=== PATIENT | female | born 1985 | race Caucasian/White ===

== ENCOUNTER → 2019-06-05 09:32 | Outpatient (CLI) | payer OTHER, SELFPAY ==
[2019-06-05 10:36] LABS: Add Manual Diff / Slide Review NO; Basophils Absolute Auto 0 /uL (0-100); Basophils Percent Auto 0.3 % (0-2); Eosinophils Absolute Auto 400 /uL (0-450); Eosinophils Percent Auto 3.7 % (2-4); Hematocrit 38.9 % (36-46); Hemoglobin 13.3 g/dL (12.0-16.0); Lymphocytes Absolute Auto 2400 /uL (1100-4500); Lymphocytes Percent Auto 23.7 % (25-40); Mean Corpuscular HGB Conc 34.4 % (30-36); Mean Corpuscular Hemoglobin 29.7 PG (26-34); Mean Corpuscular Volume 86.3 fL (80-100); Monocytes Absolute Auto 800 /uL (0-900); Monocytes Percent Auto 7.6 % (3-14); Neutrophils Absolute Auto 6700 /uL (1500-7000); Neutrophils Percent Auto 64.7 % (50-75); Platelet Count 329 X10^3/uL (150-400); Red Cell Distribution Width 12.9 % (11.6-14.8); White Blood Cell Count 10.3 X10^3/uL (4.5-11.0)
[2019-06-05 10:49] LABS: Appearance Urine UA CLEAR; Bilirubin Urine UA NEGATIVE (NEGATIVE); Color Urine UA YELLOW; Glucose Urine UA NEGATIVE (Negative); Ketones Urine UA NEGATIVE (NEGATIVE); Leukocyte Esterase Urine UA NEGATIVE (NEGATIVE); Nitrite Urine UA NEGATIVE (Negative); Occult Blood Urine UA TRACE-INTACT (Negative); Protein Urine UA NEGATIVE (Negative); Urobilinogen Urine UA 0.2 E.U./dL (0.2)
[2019-06-05 11:21] LABS: Hepatitis B Surface Antigen NEGATIVE s/c (NEGATIVE); Rubella Antibody IgG 52.6 IU/mL (>15)
[2019-06-05 11:35] LABS: HIV 1 & 2 Ab/Ag 4th Gen Combo NEGATIVE (NEGATIVE); Hep C Virus Ab w/Reflex Quant NEGATIVE s/c (NEGATIVE)
[2019-06-09 18:32] LABS: RPR Screen Nonreactive (Nonreactive)
== END ==
PROVIDERS: Visit Provider Specialist
DX: Z34.81 Encounter for supervision of other normal pregnancy, first trimester (principal); O09.291 Supervision of pregnancy with other poor reproductive or obstetric history, first trimester; Z86.32 Personal history of gestational diabetes
CPT/HCPCS: 36415; 80055; 81003; 83036; 86787; 86803; 86850; 86900; 86901; 87086; 87389

== ENCOUNTER → 2019-08-06 15:56 | Outpatient (CLI) | payer OTHER, SELFPAY ==
[2019-08-10 15:46] LABS: AFP, Serum 45.2 ng/mL; Brief History NTD NG; Calc Gestational Age 15.9; Cigarette Smoker N; Collection Date 121819; Donated Egg N; Donor Egg Age NOT GIVEN; Inhibin A, Dimeric 124 pg/mL; Maternal Weight 189 lbs; Number of Fetuses 1; Previous Pregnancy Down Syndro N; hCG, MoM 1.58; hCG, Serum 49.6 IU/mL
== END ==
PROVIDERS: PCP Physician Assistant; Visit Provider Specialist
DX: Z34.02 Encounter for supervision of normal first pregnancy, second trimester (principal); Z3A.15 15 weeks gestation of pregnancy
CPT/HCPCS: 36415; 82105; 82677; 84702; 86336

== ENCOUNTER → 2019-09-04 14:03 | Outpatient (CLI) | payer OTHER, SELFPAY ==
--- NOTE | 2019-09-04 14:04 | DI.US.S_ITS ---
PROCEDURE: US OB >= 14 WEEKS FETUS INDICATIONS: ANATOMY OUTSIDE/PRIOR DATING DATA: Last menstrual period (LMP): 04/10/19. LMP-based estimated date of delivery (EN): 01/15/20. First dating scan (date and location): 06/05/19. Estimated date of delivery (EN) from first dating scan: 01/20/20. TECHNIQUE: Real-time scanning was performed of the fetus, with image documentation and biometric measurements. COMPARISON: [facility], , OB <= 14 WEEKS FETUS, 06/05/2019, 8:51. FINDINGS: General: A single living intrauterine gestation is present. Presentation: Vertex. Placenta: Placental position is anterior, without previa. Amniotic fluid index: 21.7 cm, normal range is 5-24 cm. heart rate: 139 beats per minute. Maternal cervical canal: 3.7 cm long. Normal lower limit is 2.5 cm. biometrics: Biparietal diameter: 21 weeks 1 day Head circumference: 21 weeks Abdominal circumference: 21 weeks 4 days Femur length: 21 weeks 4 days Estimated gestational age from initial scan: 20 weeks 2 days Composite gestational age from present scan: 21 weeks 2 days Estimated weight and percentile: 433 g; 97th percentile Measurement variability for biometric dating: +/- 7 days from 14 weeks to 15 weeks 6 days gestation, +/- 10 days from 16 weeks to 21 weeks 6 days gestation, +/- 2 weeks from 22 weeks to 27 weeks 6 days gestation, +/- 3 weeks for 28 weeks gestation or later. weight reference: 4500 g or EFW >90/95% is considered macrosomia or large for gestational age. EFW <10% is small for gestational age. EFW 5% or less is considered intra-uterine growth restriction. Anatomic survey: Neuro: Ventricles are non-dilated at less than 10 mm. Cisterna magna is normal at 3-11 mm. Cerebellum is normal in size and morphology. Nuchal skin fold: Normal at less than 6 mm between 14-21 weeks gestational age. Face: Nose and lips, facial profile are normal. Spine: No evidence for spina bifida. Heart: 4-chambered heart is present, with normal ventricular outflow tracts. Diaphragm: Diaphragm is intact. Stomach: Left-sided stomach is present. Kidneys: No hydronephrosis. Normal is less than 5 mm in 2nd trimester, less than 7 mm in 3rd trimester. Cord: 3-vessel cord has orthotopic insertion. Bladder: Normal in size. Extremities: All 4 extremities identified. IMPRESSION: 1. Single living IUP redemonstrated and interval growth is greater than expected. Recommend clinical correlation and followup. 2. Normal anatomic survey. Dictated by: Jaron Nuñez [facility] Interpreted: Michelle Hussein MD on 09/04/2019 at 16:44 Approved by: Michelle Hussein MD, PhD on 09/04/2019 at 17:13
== END ==
PROVIDERS: Visit Provider Specialist
DX: Z34.82 Encounter for supervision of other normal pregnancy, second trimester (principal); Z3A.21 21 weeks gestation of pregnancy
CPT/HCPCS: 76811

== ENCOUNTER → 2019-10-13 15:21 | Outpatient (CLI) | payer OTHER, SELFPAY | PROVIDERS: Visit Provider Specialist | DX: Z34.90 Encounter for supervision of normal pregnancy, unspecified, unspecified trimester (principal); R30.0 Dysuria | CPT/HCPCS: 87077; 87086; 87186 ==

== ENCOUNTER → 2019-10-17 15:29 | Outpatient (CLI) | payer OTHER, SELFPAY ==
[2019-10-17 17:06] LABS: Hematocrit 33.7 % (36-46); Hemoglobin 11.7 g/dL (12.0-16.0)
[2019-10-17 18:01] LABS: GTT (PREG) 1 Hour PP 50gm Dose 153 mg/dL (76-139)
== END ==
PROVIDERS: Referring Provider Specialist; Visit Provider Specialist
DX: Z34.82 Encounter for supervision of other normal pregnancy, second trimester (principal); Z67.91 Unspecified blood type, Rh negative
CPT/HCPCS: 36415; 82950; 85014; 85018; 86850

== ENCOUNTER → 2019-10-24 09:25 | Outpatient (CLI) | payer OTHER, SELFPAY ==
[2019-10-24 11:44] LABS: Glucose Fasting Gestational 97 mg/dL (76-95)
[2019-10-24 12:04] LABS: Glucose 1 Hour Gest 222 mg/dL (76-180)
[2019-10-24 12:50] LABS: Glucose Tol Interp,Gestational INTERPRETATION
[2019-10-24 13:06] LABS: Glucose 2 Hour Gest 134 mg/dL (76-155)
[2019-10-24 13:46] LABS: Glucose 3 Hour Gest 104 mg/dL (76-140)
== END ==
PROVIDERS: Referring Provider Specialist; Visit Provider Specialist
DX: O99.810 Abnormal glucose complicating pregnancy (principal)
CPT/HCPCS: 36415; 82951; 82952

== ENCOUNTER → 2019-12-26 12:42 | Outpatient (CLI) | payer OTHER, SELFPAY ==
[2019-12-27 08:42] LABS: Strep Grp B PCR NEG for Grp B Strep
== END ==
PROVIDERS: Visit Provider Specialist
DX: Z34.83 Encounter for supervision of other normal pregnancy, third trimester (principal)
CPT/HCPCS: 87653

== ENCOUNTER 2019-12-26 12:55 | Outpatient (CLI) | payer OTHER, SELFPAY ==
--- NOTE | 2019-12-26 13:17 | P.TNLD_ITS ---
Visit Information Visit Information Date of evaluation: 12/26/19 Primary OB Provider: Pauline Stephens Reason for Evaluation: Yes non-stress test non-stress test reason: diabetes (Insulin dependent diabetes) [facility] Medical History (Updated 12/26/19 @ 13:18 by Pauline Stephens MD) Abnormal Pap smear of cervix (Acute ~2013) Acne (Inactive ~2003) Anxiety (Acute ~2005) Depression (Acute) Essential hypertension (Acute) GERD (gastroesophageal reflux disease) (Chronic ~2007) History of gestational diabetes (Acute) History of HPV infection (Acute ~2013) IBS (irritable bowel syndrome) (Acute ~2009) Joint pain (Chronic ~2005) Ovarian cyst (Chronic ~2017) Reflux involving intestinal tract (Acute) Surgical History (Updated 06/17/19 @ 15:02 by Joslyn Silver RN) H/O wisdom tooth extraction (Acute) Family History (Updated 07/01/19 @ 20:24 by Vania Cooper) Mother Diabetes mellitus Hypertension Depression Father Cancer Hypertension Brother Overdose Grandfather History of heart disease Grandmother No problems noted. Grandmother Cancer Social History marital status: unmarried,single Smoking Status: Never smoker Evaluation Evaluation Baseline heart rate: 140 Variability: Moderate (11-25) monitor accelerations: Present monitor decelerations: Absent Contraction Frequency (minutes): 0 Category of Tracing: I Diagnosis, Plan/Disposition Final Diagnosis (1) Gestational diabetes mellitus: Current Visit: No Status: Acute (2) 36 weeks gestation of : Current Visit: Yes Status: Acute (3) Essential hypertension: Current Visit: No Status: Acute Plan/Disposition Plan: Home weekly office visits and nonstress test OB Disposition: home
== END 2019-12-26 13:30 | disposition home or self-care (01) ==
LOC: LABOR 13:05 → OB 12-29 09:34
PROVIDERS: Referring Provider Specialist; Visit Provider Specialist
DX: O24.414 Gestational diabetes mellitus in pregnancy, insulin controlled (principal); I10 Essential (primary) hypertension; Z3A.36 36 weeks gestation of pregnancy; Z87.891 Personal history of nicotine dependence
CPT/HCPCS: 59025; 87653; G0378; G0379

== ENCOUNTER 2020-01-02 11:32 | Outpatient (CLI) | payer OTHER, SELFPAY ==
[2020-01-02 12:16] LABS: Add Manual Diff / Slide Review NO; Basophils Absolute Auto 0 /uL (0-100); Basophils Percent Auto 0.4 % (0-2); Eosinophils Absolute Auto 200 /uL (0-450); Eosinophils Percent Auto 1.8 % (2-4); Hemoglobin 11.3 g/dL (12.0-16.0); Lymphocytes Absolute Auto 1600 /uL (1100-4500); Lymphocytes Percent Auto 14.8 % (25-40); Mean Corpuscular HGB Conc 33.3 % (30-36); Mean Corpuscular Hemoglobin 28.1 PG (26-34); Mean Corpuscular Volume 84.3 fL (80-100); Monocytes Absolute Auto 600 /uL (0-900); Monocytes Percent Auto 5.7 % (3-14); Neutrophils Absolute Auto 8500 /uL (1500-7000); Neutrophils Percent Auto 77.3 % (50-75); Platelet Count 280 X10^3/uL (150-400); Red Blood Cell Count 4.03 X10^6/uL (4.0-5.2); Red Cell Distribution Width 14.4 % (11.6-14.8)
[2020-01-02 12:27] LABS: Alanine Aminotransferase 7 IU/L (<35); Albumin 3.8 g/dL (3.5-5.0); Albumin Globulin Ratio 1.1 (1.0-2.8); Alkaline Phosphatase 158 U/L (38-126); Aspartate Aminotransferase 20 IU/L (14-36); Bilirubin Total 0.3 mg/dL (0.2-1.3); Bilirubin Unconjugated 0.2 mg/dL (0.0-1.1); Blood Urea Nitrogen 13 mg/dL (7-17); Calcium 9.5 mg/dL (8.4-10.2); Carbon Dioxide 19 mmol/L (22-32); Chloride 106 mmol/L (98-107); Estimated Glomerular Filt Rate > 60.0 mL/min (>60); Globulin 3.6 g/dL (1.7-4.1); Glucose 125 mg/dL (70-100); HEMOLYSIS < 15 (0-50); Potassium 4.2 mmol/L (3.4-5.1); Sodium 135 mmol/L (137-145); Total Protein 7.4 g/dL (6.3-8.2); Uric Acid 6.2 mg/dL (2.5-6.2)
--- NOTE | 2020-01-02 12:44 | P.TNLD_ITS ---
Visit Information Visit Information Date of evaluation: 01/02/20 Primary OB Provider: Pauline Stephens Reason for Evaluation: Yes non-stress test non-stress test reason: diabetes (Insulin dependent) and hypertension/pre-eclampsia Vital Signs Vital Signs: Blood pressures ranged from 125/83, 133/98, 152/96 [facility] Medical History (Updated 01/02/20 @ 12:46 by Pauline Stephens MD) Abnormal Pap smear of cervix (Acute ~2013) Acne (Inactive ~2003) Anxiety (Acute ~2005) Depression (Acute) Essential hypertension (Acute) GERD (gastroesophageal reflux disease) (Chronic ~2007) History of gestational diabetes (Acute) History of HPV infection (Acute ~2013) IBS (irritable bowel syndrome) (Acute ~2009) Joint pain (Chronic ~2005) Ovarian cyst (Chronic ~2017) Reflux involving intestinal tract (Acute) Surgical History (Updated 06/17/19 @ 15:02 by Joslyn Silver RN) H/O wisdom tooth extraction (Acute) Family History (Updated 07/01/19 @ 20:24 by Vania Cooper) Mother Diabetes mellitus Hypertension Depression Father Cancer Hypertension Brother Overdose Grandfather History of heart disease Grandmother No problems noted. Grandmother Cancer Social History marital status: unmarried,single Smoking Status: Never smoker Objective Labs Result Diagrams: 01/02/20 12:03 01/02/20 12:03 Labs: Laboratory Results - last 24 hr 01/02/20 01/02/20 12:03 12:03 WBC 11.0 RBC 4.03 Hgb 11.3 L Hct 34.0 L MCV 84.3 MCH 28.1 MCHC 33.3 RDW 14.4 Plt Count 280 Neut % (Auto) 77.3 H Lymph % (Auto) 14.8 L [place] % (Auto) 5.7 Eos % (Auto) 1.8 L Baso % (Auto) 0.4 Neut # (Auto) 8500 H Lymph # (Auto) 1600 [place] # (Auto) 600 Eos # (Auto) 200 Baso # (Auto) 0 Sodium 135 L Potassium 4.2 Chloride 106 Carbon Dioxide 19 L BUN 13 Creatinine 0.65 Estimated GFR > 60.0 BUN/Creatinine Ratio 20.0 Glucose 125 H Uric Acid 6.2 Calcium 9.5 Total Bilirubin 0.3 Conjugated Bilirubin 0.0 Unconjugated Bilirubin 0.2 AST 20 ALT 7 Alkaline Phosphatase 158 H Total Protein 7.4 Albumin 3.8 Globulin 3.6 Albumin/Globulin Ratio 1.1 Evaluation Evaluation Baseline heart rate: 130 Variability: Moderate (11-25) monitor accelerations: Present monitor decelerations: Absent Category of Tracing: I Laboratory results: Laboratory Tests 01/02/20 01/02/20 12:03 12:03 WBC 11.0 RBC 4.03 Hgb 11.3 L Hct 34.0 L MCV 84.3 MCH 28.1 MCHC 33.3 RDW 14.4 Plt Count 280 Neut % (Auto) 77.3 H Lymph % (Auto) 14.8 L [place] % (Auto) 5.7 Eos % (Auto) 1.8 L Baso % (Auto) 0.4 Neut # (Auto) 8500 H Lymph # (Auto) 1600 [place] # (Auto) 600 Eos # (Auto) 200 Baso # (Auto) 0 Sodium 135 L Potassium 4.2 Chloride 106 Carbon Dioxide 19 L BUN 13 Creatinine 0.65 Estimated GFR > 60.0 BUN/Creatinine Ratio 20.0 Glucose 125 H Uric Acid 6.2 Calcium 9.5 Total Bilirubin 0.3 Conjugated Bilirubin 0.0 Unconjugated Bilirubin 0.2 AST 20 ALT 7 Alkaline Phosphatase 158 H Total Protein 7.4 Albumin 3.8 Globulin 3.6 Albumin/Globulin Ratio 1.1 Diagnosis, Plan/Disposition Final Diagnosis (1) Gestational diabetes mellitus: Current Visit: No Status: Acute (2) Essential hypertension: Current Visit: No Status: Acute (3) 37 weeks gestation of : Current Visit: Yes Status: Acute Plan/Disposition Plan: Patient with elevated blood pressures despite her labetalol. No symptoms of preeclampsia, urine dip was trace protein in the office, [facility] labs are normal. Patient is to increase her labetalol to 200 mg b.i.d.. Patient to have a follow-up NST with blood pressure check in 3 days. Precautions reviewed with the patient. Patient will continue her insulin and monitor her blood sugars. Patient is tentatively scheduled for induction on 01/14 OB Disposition: home
== END 2020-01-02 12:45 | disposition home or self-care (01) ==
LOC: LABOR 12:36 → OB 01-05 15:08
PROVIDERS: Referring Provider Specialist; Visit Provider Specialist
DX: O24.414 Gestational diabetes mellitus in pregnancy, insulin controlled (principal); O10.913 Unspecified pre-existing hypertension complicating pregnancy, third trimester; Z3A.37 37 weeks gestation of pregnancy
CPT/HCPCS: 36415; 59025; 80053; 80076; 84550; 85025; G0378; G0379

== ENCOUNTER 2020-01-05 12:03 | Outpatient (CLI) | payer OTHER, SELFPAY ==
--- NOTE | 2020-01-05 12:41 | PM.OBTRLD ---
Visit Information <Shy Chin MD - Last Filed: 01/05/20 13:48> Visit Information Date of evaluation: 01/05/20 Primary OB Provider: Pauline Stephens On-call OB Provider: Shy Chin Reason for Evaluation: Yes non-stress test Comments/Additional reasons for admission: Patient is a 34yo @37 weeks with hypertenstion and GDMA2 on insulin, presenting for scheduled NST. Vital Signs Vital Signs: 128/86, HR 96 PFSH <Shy Chin MD - Last Filed: 01/05/20 13:48> Medical History Abnormal Pap smear of cervix (Acute ~2013) Acne (Inactive ~2003) Anxiety (Acute ~2005) Depression (Acute) Essential hypertension (Acute) GERD (gastroesophageal reflux disease) (Chronic ~2007) History of gestational diabetes (Acute) History of HPV infection (Acute ~2013) IBS (irritable bowel syndrome) (Acute ~2009) Joint pain (Chronic ~2005) Ovarian cyst (Chronic ~2017) Reflux involving intestinal tract (Acute) Surgical History H/O wisdom tooth extraction (Acute) Family History Mother Diabetes mellitus Hypertension Depression Father Cancer Hypertension Brother Overdose Grandfather History of heart disease Grandmother No problems noted. Grandmother Cancer Social History marital status: unmarried,single Smoking Status: Never smoker Evaluation <Shy Chin MD - Last Filed: 01/05/20 13:48> Evaluation Baseline heart rate: 125 Variability: Moderate (11-25) monitor accelerations: Present monitor decelerations: Absent Category of Tracing: I Diagnosis, Plan/Disposition <Shy Chin MD - Last Filed: 01/05/20 13:48> Plan/Disposition Plan: Home with scheduled follow up. OB Disposition: home
== END 2020-01-05 12:51 | disposition home or self-care (01) ==
LOC: LABOR 12:27 → OB 15:10
PROVIDERS: Referring Provider Specialist; Visit Provider Specialist
DX: O24.414 Gestational diabetes mellitus in pregnancy, insulin controlled (principal); O13.3 Gestational [pregnancy-induced] hypertension without significant proteinuria, third trimester; Z3A.37 37 weeks gestation of pregnancy
CPT/HCPCS: 59025; G0378; G0379

== ENCOUNTER 2020-01-09 12:54 | Outpatient (CLI) | payer OTHER, SELFPAY ==
--- NOTE | 2020-01-09 13:23 | PM.OBTRLD ---
Visit Information Visit Information Date of evaluation: 01/09/20 Primary OB Provider: Pauline Stephens Reason for Evaluation: Yes non-stress test non-stress test reason: diabetes PFSH Social History marital status: unmarried,single Smoking Status: Never smoker Evaluation Evaluation Baseline heart rate: 140 Variability: Moderate (11-25) monitor accelerations: Present monitor decelerations: Absent Contraction Frequency (minutes): 0 Category of Tracing: I Diagnosis, Plan/Disposition Final Diagnosis (1) Gestational diabetes mellitus: Current Visit: No Status: Acute (2) 38 weeks gestation of : Current Visit: Yes Status: Acute (3) Essential hypertension: Current Visit: No Status: Acute Plan/Disposition Plan: Reactive nonstress test follow-up in 5 days OB Disposition: home
== END 2020-01-09 13:28 | disposition home or self-care (01) ==
LOC: LABOR 13:41 → OB 01-13 11:36
PROVIDERS: Referring Provider Specialist; Visit Provider Specialist
DX: O24.414 Gestational diabetes mellitus in pregnancy, insulin controlled (principal); I10 Essential (primary) hypertension; Z3A.38 38 weeks gestation of pregnancy
CPT/HCPCS: 59025; G0378; G0379

== ENCOUNTER 2020-01-10 23:11 | Inpatient (IN) | payer OTHER, SELFPAY ==
--- NOTE | 2020-01-11 03:02 | PM.OBHP.1 ---
OB HPI Date/Time Date of admission: 01/11/20 Date Patient Seen: 01/11/20 Time Patient Seen: 03:03 History of Present Condition Chief complaint: Evaluation of Labor : 2 Para: 1 Estimated Date of Delivery: 01/22/20 Estimated Gestational Age (weeks): 38 Narrative: Yamilet Menon is a 34 year old female admitted with spontaneous rupture of membranes not in active labor History of Present care: good care, initiated at week # (7), number of visits (13) and pounds weight gain (20) Dating criteria: based on 1st trimester US only Ultrasounds: normal mid trimester US Obstetrical complications: gestational diabetes (On insulin) and gestational hypertension (On labetalol) Medical complications: none Preadmission Labs Blood type: B (-) negative -: Antibody screen: negative, GBS status: negative, HBsAG: negative, HIV: negative and RPR/VDLR: negative -: Rubella: immune and Varicella: immune HCAB: negative Quad screen: Normal 1 hr GTT: 153 3 hr GTT: 1 hr (222), 2 hr (134) and 3 hr (104) Fasting blood glucose: 97 Evaluation Evaluation Baseline heart rate: 130 Variability: Moderate (11-25) monitor accelerations: Present monitor decelerations: Absent Contraction Frequency (minutes): 0 Category of Tracing: I Cervical dilation (cm): 1 Cervical effacement (%): 0 station: -3 PFSH Social History marital status: unmarried,single Smoking Status: Never smoker Meds Home Medications and Allergies Home Medications Medication Instructions Recorded Confirmed Type labetalol 100 mg tablet 100 mg PO BID #60 tab 06/05/19 01/09/20 Rx prenat.vits,vickie,fel-ospc-stfrv 1 tab PO DAILY 06/05/19 01/09/20 History ondansetron HCl 8 mg tablet 8 mg PO Q8H PRN #20 tab 07/23/19 01/09/20 Rx omeprazole 40 mg capsule,delayed 40 mg PO DAILY #30 cap 08/06/19 01/09/20 Rx release blood sugar diagnostic #400 each 10/24/19 01/09/20 Rx blood-glucose meter #1 each 10/24/19 01/09/20 Rx lancets 28 gauge #400 each 10/24/19 01/09/20 Rx insulin NPH isoph U-100 human 100 30 unit SUBCUT .COMPLEX #10 ml 12/19/19 01/09/20 Rx unit/mL subcutaneous suspension insulin regular human 100 unit/mL 10 unit SUBCUT .COMPLEX #10 ml 12/19/19 01/09/20 Rx injection solution insulin syringe-needle U-100 1 mL #100 each 12/19/19 01/09/20 Rx 29 gauge x 5/16 Allergies Allergy/AdvReac Type Severity Reaction Status Date / Time Sulfa (Sulfonamide Allergy Verified 11/14/19 11:09 Antibiotics) Tetracyclines Allergy Verified 11/14/19 11:09 Review of Systems Review of Systems Narrative: Patient complains of spontaneous rupture membranes 9:00 p.m. 01/10/2020 clear fluid. No headaches, scotomata. She is having heartburn. No contractions. ROS: Yes All systems reviewed with the patient and are negative except as otherwise documented Exam Vital Signs (past 8 hours): Blood pressure varies from 145/90 to 174/99, pulse 106, temperature 97.3? Narrative Exam Narrative: HEENT exam within limits. Lungs are clear to auscultation percussion. Heart is regular rate and S3-S4 or murmurs. Abdomen is soft, nontender. is vertex. Extremities without edema and nontender. Assessment and Plan Assessment and Plan Assessment and Plan narrative: 38 week gestation with premature rupture membranes. If patient does not go into active labor will begin Pitocin. Labetalol for hypertension and insulin for her gestational diabetes.
[2020-01-11] MEDS: CALCIUM CARBONATE 500 MG TAB 1000 MG PO ×2 (03:15→13:56)
[2020-01-11 05:07] LABS: Add Manual Diff / Slide Review NO; Basophils Absolute Auto 0 /uL (0-100); Basophils Percent Auto 0.3 % (0-2); Eosinophils Absolute Auto 200 /uL (0-450); Eosinophils Percent Auto 1.5 % (2-4); Hematocrit 33.6 % (36-46); Hemoglobin 11.4 g/dL (12.0-16.0); Lymphocytes Absolute Auto 2300 /uL (1100-4500); Lymphocytes Percent Auto 17.5 % (25-40); Mean Corpuscular Hemoglobin 28.2 PG (26-34); Monocytes Absolute Auto 900 /uL (0-900); Monocytes Percent Auto 7.2 % (3-14); Neutrophils Absolute Auto 9600 /uL (1500-7000); Neutrophils Percent Auto 73.5 % (50-75); Platelet Count 303 X10^3/uL (150-400); Red Blood Cell Count 4.05 X10^6/uL (4.0-5.2); Red Cell Distribution Width 14.2 % (11.6-14.8)
[2020-01-11 05:33] VITALS: BP 135/80
[2020-01-11 07:28] LABS: COVID19 -Nasal RAPID Negative (Negative)
[2020-01-11] MEDS: ACETAMINOPHEN 325 MG TABLET 650 MG PO ×2 (08:09→13:55)
[2020-01-11] MEDS: INSULIN NPH 100 UNIT/ML VIAL 30 UNIT SUBCUT (08:46)
[2020-01-11] MEDS: LACTATED RINGERS 1,000 ML 100 ML IV (09:07)
[2020-01-11] MEDS: OXYTOCIN PREMIX 30 UNIT/500 ML PLAST..BAG IV (09:08)
[2020-01-11 09:13] VITALS: BP 139/97; PULSE 100
[2020-01-11] MEDS: LABETALOL 100 MG TABLET PO (09:13)
[2020-01-11 10:28] VITALS: BP 161/91; PULSE 97
[2020-01-11] MEDS: LABETALOL 20 MG/4 ML SYRINGE IV (10:28)
[2020-01-11 13:32] VITALS: BP 103/49; PULSE 88
--- NOTE | 2020-01-11 17:55 | PM.OBPRVD ---
 Events: Gestational Diabetes (Insulin requiring), Induced HTN, Labor Augmentation (Pitocin) and Premature Rupture of Membrane Labor & Delivery Delivery date: 01/11/20 Delivery augmentation: pitocin Delivery monitor: external FHT and external uterine Route of delivery: L&D Laceration Description: None Estimated blood loss (mL): 50 Anesthesia type: Epidural Narrative: Patient arrived on Labor and delivery with spontaneous rupture membranes at 2100 on 01/11/2020. Patient did not start into active labor and so was started on Pitocin. She had NPH insulin. Her blood sugars were monitored every 2 hours. Patient had extremely labile blood pressures. She was treated with p.o. and IV labetalol. Patient received an epidural catheter for pain control. heart tones category 1 to category 2 throughout labor. She progressed rapidly to complete and pushing and had a spontaneous vaginal delivery. There was a tight nuchal cord. The viable female infant was placed on maternal abdomen. After the cord stopped pulsating the cord was clamped, cut, and cord bloods obtained. The placenta delivered spontaneously, intact, with 3 vessels. There were no cervical, vaginal, or perineal tears. Both infant mother doing well. [place] Baby 1: gender: Female Presentation: vertex position: Right Occiput Anterior Placenta delivery description: Spontaneous cord vessel description: Nuchal Cord score (1 min): 8 score (5 min): 9 Plan for aftercare: Routine care. Insulin no longer required. Monitor patient's blood pressures.
[2020-01-11] MEDS: LANOLIN OINT 7 GM 1 APPLIC TOP (21:22)
[2020-01-11] MEDS: FAMOTIDINE 20 MG TABLET 40 MG PO (21:25)
[2020-01-11] MEDS: NIFEdipine 30 MG TAB ER 60 MG PO (23:14)
[2020-01-12 05:23] LABS: Add Manual Diff / Slide Review NO; Basophils Absolute Auto 0 /uL (0-100); Basophils Percent Auto 0.3 % (0-2); Eosinophils Absolute Auto 200 /uL (0-450); Eosinophils Percent Auto 1.1 % (2-4); Hematocrit 32.1 % (36-46); Hemoglobin 11.1 g/dL (12.0-16.0); Lymphocytes Absolute Auto 2100 /uL (1100-4500); Mean Corpuscular HGB Conc 34.6 % (30-36); Mean Corpuscular Hemoglobin 28.5 PG (26-34); Mean Corpuscular Volume 82.4 fL (80-100); Monocytes Absolute Auto 1100 /uL (0-900); Monocytes Percent Auto 7.4 % (3-14); Neutrophils Absolute Auto 11700 /uL (1500-7000); Neutrophils Percent Auto 77.2 % (50-75); Platelet Count 279 X10^3/uL (150-400); Red Blood Cell Count 3.89 X10^6/uL (4.0-5.2); Red Cell Distribution Width 13.9 % (11.6-14.8); White Blood Cell Count 15.2 X10^3/uL (4.5-11.0)
[2020-01-12] MEDS: ACETAMINOPHEN 325 MG TABLET 650 MG PO (06:06)
[2020-01-12] MEDS: IBUPROFEN 600 MG TABLET PO (07:59)
--- NOTE | 2020-01-12 10:42 | PM.OBPN.1 ---
Subjective - OB Subjective Patient comments: no complaints, pain well controlled, tolerating diet and flatus present baby status: doing well [place] feeding status: breast and bottle feeding Narrative: This patient is a 34yo now P2 PPD#1 s/p , with a complicated by chronic hypertension and gestational diabetes. The patient reports feeling well this AM, with a mild headache but no visual changes, chest pain, SOB, RUQ pain, or any other complaints. The patient strongly desires discharge home, and we discussed monitoring of BPs until late afternoon with discharge if they remain well controlled on 60mg XL nifedipine qHS. Date Patient Seen: 01/12/20 Time Patient Seen: 11:02 Exam Vital Signs (past 8 hours): 129/85, HR 93, T 98.4F Resp Effort & Inspection: normal respiratory effort Auscultation: clear to auscultation bilaterally Cardio Rate: regular rate Rhythm: regular rhythm GI Palpation: soft and No tender Objective Labs Result Diagrams: 01/12/20 05:05 Labs: Laboratory Results - last 24 hr 01/11/20 01/12/20 01/12/20 17:32 05:05 05:05 WBC 15.2 H RBC 3.89 L Hgb 11.1 L Hct 32.1 L MCV 82.4 MCH 28.5 MCHC 34.6 RDW 13.9 Plt Count 279 Neut % (Auto) 77.2 H Lymph % (Auto) 14.0 L [place] % (Auto) 7.4 Eos % (Auto) 1.1 L Baso % (Auto) 0.3 Neut # (Auto) 25471 H Lymph # (Auto) 2100 [place] # (Auto) 1100 H Eos # (Auto) 200 Baso # (Auto) 0 Cord Blood ABO/Rh Cancelled Direct Antiglob Test Cancelled Mother's Name Cancelled Maternal Bleed Negative Assessment & Plan Assessment and Plan (1) Vaginal delivery: Status: Acute Current Visit: Yes Plan day: 1 plan OB: routine care Comments: This patient is recovering appropriately, meeting goals and with good blood pressure control on her nifedipine. She desires discharge today, and we discussed BP monitoring through the afternoon followed by discharge home with home monitoring, PIH precautions, and BP check within the week. Patient and partner vocalized understanding. Time Spent With Patient Time: Total time spent is greater than 50% in coordination of care (as documented) at patient's floor/unit and/or counseling patient: Time with patient: 15-24 minutes
--- NOTE | 2020-01-12 11:19 | PM.OBDS.1 ---
Discharge Providers Provider Date of admission: 01/10/20 23:11 Discharge Date: 01/12/20 Consults: 01/11/20 02:56 Consult to Anesthesiology Urgent Comment: Consulting Provider: Anesthesiologist Reason for consultation: epidural Has provider been notified: No 01/12/20 17:53 Consult to Calcine Furnace Tender Routine Comment: Discharge provider: Shy Chin MD Summary Hospital Course Date Patient Seen: 01/12/20 Time Patient Seen: 11:20 Procedures: vaginal delivery Hospital Course: This patient is a 34yo now P2 who presented to the hospital for PROM and was successfully induced with pitocin. She had an uncomplicated vaginal delivery of a healthy baby girl, and was discharged on PPD#1 after meeting goals appropriately. Peripartum Data Delivery Method: Natural Vaginal Laceration description: None complications: none 1: Gender: Female Disposition of : home Discharge Diagnosis (1) Vaginal delivery: Status: Acute Status at Discharge Cognitive/behavioral status at discharge: oriented Functional status at discharge: independent ambulation Overall status at discharge: patient is progressing back to baseline Time Spent with Patient Time attestation: Total time spent providing and/or coordinating discharge services: Objective Labs Result Diagrams: 01/12/20 05:05 Labs: Laboratory Results - last 24 hr 01/11/20 01/12/20 01/12/20 17:32 05:05 05:05 WBC 15.2 H RBC 3.89 L Hgb 11.1 L Hct 32.1 L MCV 82.4 MCH 28.5 MCHC 34.6 RDW 13.9 Plt Count 279 Neut % (Auto) 77.2 H Lymph % (Auto) 14.0 L [place] % (Auto) 7.4 Eos % (Auto) 1.1 L Baso % (Auto) 0.3 Neut # (Auto) 15992 H Lymph # (Auto) 2100 [place] # (Auto) 1100 H Eos # (Auto) 200 Baso # (Auto) 0 Cord Blood ABO/Rh Cancelled Direct Antiglob Test Cancelled Mother's Name Cancelled Maternal Bleed Negative Discharge Plan Discharge Plan Patient Disposition: Home Discharge orders & Medications Prescriptions: New nifedipine 60 mg tablet extended release 60 mg PO .QHS Qty: 30 RF: 1 Continued prenat.vits,vickie,ohj-tmpd-jzavg Tablet 1 tab PO DAILY RF: 0 omeprazole 40 mg capsule,delayed release(DR/EC) 40 mg PO DAILY Qty: 30 RF: 6 Discontinued ondansetron HCl [Zofran] 8 mg tablet 8 mg PO Q8H PRN (Reason: nausea and vomiting) Qty: 20 RF: 2 (DME) blood-glucose meter [Blood Glucose Monitoring] Kit See Rx Instructions .ROUTE .MEDSUPPLY Qty: 1 RF: 0 (DME) lancets [FreeStyle Lancets] 28 gauge misc See Rx Instructions .ROUTE .MEDSUPPLY Qty: 400 RF: 1 (DME) Blood Glucose Test Strip See Rx Instructions .ROUTE .MEDSUPPLY Qty: 400 RF: 1 labetalol 100 mg tablet 100 mg PO BID Qty: 60 RF: 6 Novolin N NPH U-100 Insulin 100 unit/mL suspension 30 unit SUBCUT .COMPLEX Qty: 10 RF: 2 Novolin R Regular U-100 Insuln 100 unit/mL solution 10 unit SUBCUT .COMPLEX Qty: 10 RF: 3 (DME) CareTouch Insulin Syringe 1 mL 29 gauge x 5/16 syringe See Rx Instructions .ROUTE .MEDSUPPLY Qty: 100 RF: 0 Follow up/Referrals: Pauline Stephens MD [Physician] - 1 Week (please call [phone] to schedule a BP check for Sunday, January 15 and a 4 week check w/ Dr. Stephens please check your BP tonight and call MD if systolic >150 or diastolic >105) Diet/Activity/Treatments Diet: Regular Activity: Nothing in the vagina for 6 weeks. Avoid heavy lifting for 6 weeks. If you develop increasing fevers, chills, nausea, vomiting, bleeding, headaches, visual changes, or any other symptoms or concerns, call or come to the emergency department. Skin/Wound/Dressing Care Report to your healthcare provider any signs of infection, such as:: chills, fever, night sweats, increased pain, unusual drainage and unusual redness Visit Report/Discharge Packet Stand Alone Forms: Discharge: Care Visit Report Forms: Patient Portal/API, Stroke Signs & Symptoms Discharges patient from system. Discharge Date/Time: 01/12/20 15:37
[2020-01-12] MEDS: RHO(D) IMMUNE GLOBULIN 1,500 UNIT SYRINGE 1500 UNIT IM (14:38)
== END 2020-01-12 15:37 | disposition home or self-care (01) | DRG 807 ==
PROVIDERS: Admitting Provider Specialist; Referring Provider Specialist; Visit Provider Specialist
DX: O24.424 Gestational diabetes mellitus in childbirth, insulin controlled (principal); Z37.0 Single live birth; Z3A.38 38 weeks gestation of pregnancy; O13.4 Gestational [pregnancy-induced] hypertension without significant proteinuria, complicating childbirth; O42.02 Full-term premature rupture of membranes, onset of labor within 24 hours of rupture; O69.81X0 Labor and delivery complicated by cord around neck, without compression, not applicable or unspecified; Z11.59 Encounter for screening for other viral diseases
CPT/HCPCS: 01967; 36415; 59025; 59050; 59400; 85025; 85461; 86850; 86870; 86900; 86901; 87635; A9270; G0379; J2590; J2790